=== PATIENT | female | born 1990 | race Caucasian/White ===

== ENCOUNTER 2019-08-02 02:19 | Emergency (ER) | payer BC ==
[2019-08-02 03:03] VITALS: BMI 18.8
[2019-08-02] MEDS ORDERED: SODIUM CHLORIDE 0.9% 500 ML INFUS.BAG IV ONE (03:21)
[2019-08-02] MEDS ORDERED: METOCLOPRAMIDE HCL INJECTION 10 MG/2 ML VIAL IVPUSH ONE (03:21)
[2019-08-02] MEDS ORDERED: ACETAMINOPHEN 1000 MG/100 ML VIAL (NON FORMULARY) IVPB ONE (03:21)
[2019-08-02] MEDS ORDERED: METOCLOPRAMIDE HCL INJECTION 10 MG/2 ML VIAL ONE (03:31)
[2019-08-02] MEDS ORDERED: ACETAMINOPHEN INJECTION 100 ML IVPB ONE (03:32)
--- NOTE | 2019-08-02 03:41 | PDOC ---
History of Present Illness - History of Present Illness Initial Comments: Kianna Davis is an otherwise healthy 29yo woman who presents with 3 days of cough and congestion, now with one day of headache. She states that she has had cold-like symptoms for a few days, but she only started having the headache yesterday morning. She took Nyquil in the morning with improvement, but the headache returned in the evening. Subsequent Nyquil did not resolve the headache. She describes it as aching, starting in the occipital area, and wraping around to the front of her head bilaterally. She denies associated photophobia, phonophobia, nausea/vomiting, neck stiffness, fever, focal weakness , or any other neurological symptoms. <Gretchen Mata - Last Filed: 08/02/19 04:50> <Luann White - Last Filed: 08/02/19 19:44> - General Chief Complaint: Head/Neck problem Stated Complaint: CONGESTION,NECK AND PAIN Time Seen by Provider: 08/02/19 03:16 Past History - Psycho Social/Smoking Cessation Hx Smoking History: Never smoked Hx Alcohol Use: No <Gretchen Mata - Last Filed: 08/02/19 04:50> <Luann White - Last Filed: 08/02/19 19:44> - Past Medical History Allergies/Adverse Reactions: Allergies Allergy/AdvReac Type Severity Reaction Status Date / Time No Known Allergies Allergy Verified 08/02/19 03:03 Home Medications: Ambulatory Orders NK [No Known Home Medication] 08/02/19 Review of Systems - Review of Systems Comments:: General: No fevers, no chills, no weight or appetite change, no malaise HEENT: No changes in vision, no changes in hearing, + congestion, no sore throat , +AC CV: No chest pain, no palpitations, no LE edema Pulm: No SOB, + cough, no wheezing GI: No nausea or vomiting, no change in bowel habits, no melena : No frequency, no urgency, no dysuria Musc: No back pain, no joint swelling, no recent injury Skin: No rash, no lesions, no erythema Endo: No excessive thirst, no heat/cold intolerance Heme: No unusual bruising or bleeding, no swollen glands Neuro: No syncope, no numbness/tingling, no focal weakness Vasc: No claudication Psych: No recent change in mood, no SI or HI <Gretchen Mata - Last Filed: 08/02/19 04:50> *Physical Exam - Vital Signs Last Vital Signs Temp Pulse Resp BP Pulse Ox 97.7 F 95 H 18 130/76 99 08/02/19 02:20 08/02/19 02:20 08/02/19 02:20 08/02/19 02:20 08/02/19 02:20 - Physical Exam General: Comfortable, no acute distress HEENT: Atraumatic, PERRL, EOMI, MMM, voice normal, normal neck ROM, no pharyngeal erythema, TM clear b/l Cards: RRR, no murmur appreciated Pulm: Comfortable on room air, clear to auscultation bilaterally Ext: Atraumatic. No LE edema. ROM intact. WWP Skin: Normal color, no rashes or lesions Neuro: A&Ox3, CN grossly intact, normal speech, motor/sensory grossly intact and symmetric. No focal abnormalities. Psych: Mood appropriate to situation <Gretchen Mata - Last Filed: 08/02/19 04:50> - Vital Signs Last Vital Signs Temp Pulse Resp BP Pulse Ox 97.9 F 86 20 128/72 100 08/02/19 05:04 08/02/19 05:04 08/02/19 05:04 08/02/19 05:04 08/02/19 05:04 <Luann White - Last Filed: 08/02/19 19:44> ED Treatment Course - Medications Given in the ED: ED Medications Discontinued Medications Generic Name Dose Route Start Last Admin Trade Name Cruzitoq PRN Reason Stop Dose Admin Acetaminophen 1,000 mg 08/02/19 03:21 08/02/19 03:45 Ofirmev Injection - IVPB 08/02/19 03:22 1,000 mg ONCE ONE Administration Metoclopramide HCl 10 mg 08/02/19 03:21 08/02/19 03:46 Reglan Injection - IVPUSH 08/02/19 03:22 10 mg ONCE ONE Administration Sodium Chloride 1,000 ml 08/02/19 03:21 08/02/19 03:45 Normal Saline - IV 08/02/19 03:22 1,000 ml ONCE ONE Administration <Luann White - Last Filed: 08/02/19 19:44> Medical Decision Making - Medical Decision Making 08/02/19 03:22 Kianna Davis is an otherwise healthy 29yo woman who presents with 3 days of cough and congestion, now with one day of headache. She denies any red flag symptoms including fever, neck stiffness, or neurological deficits. - Most likely viral URI or flu-like illness given cough, congestion, headache - Symptoms have been present for 3 days, will not test for flu - IVF, reglan, acetaminophen for symptoms - Reassess 08/02/19 04:50 - Pt feels improved, headache now resolved - Will discharge home. Discussed home care and return precautions at length. Discussed with Dr Cindy Mata PGY2 <Gretchen Mata - Last Filed: 08/02/19 04:50> Discharge - Discharge Information Problems reviewed: Yes - Admission No <Gretchen Mata - Last Filed: 08/02/19 04:50> <Luann White - Last Filed: 08/02/19 19:44> - Discharge Information Clinical Impression/Diagnosis: Flu-like symptoms Condition: Improved Disposition: HOME - Follow up/Referral Referrals: [facility] [place] [[place] Group] - Patient Discharge Instructions Patient Printed Discharge Instructions: DI for Viral Upper Respiratory Infection -- Adult Additional Instructions: Discharge Instructions: You were seen in the emergency department for headache, congestion, and cough. Your symptoms are most likely caused by a viral infection such as the common cold. You should feel better within a week without any additional treatment. Home Care and Follow Up: - Make sure you are drinking plenty of fluids while you are sick. Increase your normal fluid intake. It is OK if you do not feel like eating as long as you are staying well hydrated - You may use medications such as acetaminophen (Tylenol) 650-1000mg or ibuprofen (Advil, Motrin) 400-600mg every 6 hours as needed for pain or fever over 101F - Consider placing a humidifier in your room overnight to help relieve congestion and reduce drying of your nose and mouth. - Use throat lozenges (cough drops) for sore throat or cough - If you use additional cold medications, make sure they do not contain medicines you are already taking such as acetaminophen or ibuprofen - You should feel better within a week, though cough can sometimes last longer. If you are not feeling better in a week, follow up with your primary doctor. If you need to see a new doctor, you have been referred to the [facility]. - Seek immediate care if you have worsening symptoms, you are unable to stay hydrated, you develop high fevers over 104F that do not come down with medication, or you have any other medical emergency.
--- NOTE | 2019-08-02 04:20 | PDOC ---
Attending Attestation - Resident Resident Name: EsperanzaGretchen - ED Attending Attestation I have performed the following: I have examined & evaluated the patient, The case was reviewed & discussed with the resident, I agree w/resident's findings & plan - HPI HPI: 08/02/19 04:16 29yo woman who presents with 3 days of cough and congestion, now with one day of headache. She states that she has had cold-like symptoms for 3-4 days, but she only started having the headache yesterday morning. She took Nyquil in the morning with improvement, but the headache returned in the evening. Subsequent Nyquil did not resolve the headache. She describes it as aching, starting in the occipital area, and wraping around to the front of her head bilaterally. She denies associated photophobia, phonophobia, nausea/vomiting, neck stiffness , fever, focal weakness, or any other neurological symptoms. - Physicial Exam PE: 08/02/19 04:20 Agree with the resident's HPI and PE as documented in the electronic medical record. NAD, well appearing, EOMI, PERRL, nl conjunctiva, anicteric; neck supple. lungs clear, RRR, abdomen soft nontender. no rebound, guarding. Back nontender. ALEXANDER x4, no focal neuro deficits. No peripheral edema. normal color for ethnicity , WWP. gait stable 08/02/19 04:31 - Medical Decision Making 08/02/19 04:20 Vital Signs Temp Pulse Resp BP Pulse Ox 97.7 F 95 H 18 130/76 99 08/02/19 02:20 08/02/19 02:20 08/02/19 02:20 08/02/19 02:20 08/02/19 02:20 pt likely viral syndrome. out of tamiflu benefit, so will not test, as otherwise healthy vs reviewed, wnl. normal sats. no fever, nontoxic appearing given tylenol, IVF and reglan feels improved neuro intact gait stable DC stable condition, likely viral syndrome contributing to AC/URI sx. return precautions. hydration and supportive care measures. likely viral syndrome 08/02/19 19:45
[2019-08-02 05:34] VITALS: BP 128/72; PULSE 86; TEMP 97.9
== END 2019-08-02 05:03 | disposition home or self-care (01) ==
LOC: JER 02:19
PROC: 3E033NZ Introduction of Analgesics, Hypnotics, Sedatives into Peripheral Vein, Percutaneous Approach (ICD-10-PCS; principal; 2019-08-02)
PROC: 3E033GC Introduction of Other Therapeutic Substance into Peripheral Vein, Percutaneous Approach (ICD-10-PCS; 2019-08-02)
DX: J11.1 Influenza due to unidentified influenza virus with other respiratory manifestations (principal)
CPT/HCPCS: 99282-25; J0131